=== PATIENT | male | born 1995 | race Caucasian/White ===

== ENCOUNTER 2025-05-30 15:45 | Emergency (ER) | payer BC, SELFPAY ==
[2025-05-30 16:00] VITALS: BP 147/95; PULSE 92; RESP 16; TEMP 36.7; O2SAT 97
--- NOTE | 2025-05-30 16:27 | ED_ITS ---
HPI - General Adult General Chief complaint: Upper Respiratory Infection Stated complaint: Cough Source: patient Mode of arrival: ambulatory Limitations: no limitations History of Present Illness HPI narrative: Pt is a 29 y/o male presenting with c/o cough. Additional sx reported include congestion, fever, rhinorrhea which have resolved. Reports cough x 10 days, has improved since onset. Has been taking OTC meds with improvement. Voices concern due to lingering cough. Denies any new fevers or constitutional sx. No known exposure to COVID/flu/strep. No additional complaints. 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 well-nourished, and in no acute distress. HEAD: Normocephalic, atraumatic. EYES: EOMI. No redness or drainage. Conjunctivae normal. ENT: Mucous membranes pink and moist. Nares clear. No rhinorrhea. TMs normal bilaterally. Throat normal. Uvula midline. NECK: Normal AROM. Supple. No lymphadenopathy. CHEST: No respiratory distress. Clear to auscultation. HEART: Regular rate and rhythm. No murmur appreciated. Normal peripheral pulses. MUSCULOSKELETAL: No bony tenderness. EXTREMITIES: Normal range of motion. No edema. SKIN: Warm, dry, no rash. Capillary refill normal. Normal skin turgor. NEURO: No focal deficits. Alert and oriented x3. Gait steady. PSYCH: Normal affect. No signs of depression or anxiety. Course Course Level of Care: Express Care Visit Vital Signs Vital signs: Vital Signs Temperature 98.1 F 05/30/25 16:00 Pulse Rate 92 05/30/25 16:00 Respiratory Rate 16 05/30/25 16:00 Blood Pressure 147/95 H 05/30/25 16:00 Pulse Oximetry 97 05/30/25 16:00 Temperature 98.1 F 05/30/25 16:00 Pulse Rate 92 05/30/25 16:00 Respiratory Rate 16 05/30/25 16:00 Blood Pressure 147/95 H 05/30/25 16:00 Pulse Oximetry 97 05/30/25 16:00 Medical Decision Making Vital Signs Vital Signs: Vital Signs Temperature 98.1 F 05/30/25 16:00 Pulse Rate 92 05/30/25 16:00 Respiratory Rate 16 05/30/25 16:00 Blood Pressure 147/95 H 05/30/25 16:00 Pulse Oximetry 97 05/30/25 16:00 Temperature 98.1 F 05/30/25 16:00 Pulse Rate 92 05/30/25 16:00 Respiratory Rate 16 05/30/25 16:00 Blood Pressure 147/95 H 05/30/25 16:00 Pulse Oximetry 97 05/30/25 16:00 Discharge Plan Discharge Clinical Impression: Elevated blood pressure reading in office without diagnosis of hypertension Cough Qualifiers: Cough type: acute Qualified Code(s): R05.1 - Acute cough Patient Disposition: Home Condition: Stable Instructions: Antibiotic Form, Acute Cough (ED) Additional Instructions: Go straight to ER should your symptoms become worse or should any new symptoms develop Patient Language: Telugu Prescriptions: New prednisone 20 mg tablet 60 mg PO DAILY Qty: 15 0RF Follow-up/Referrals: Elida Zamudio APRN [Primary Care Provider] - Time of Disposition: 16:29
== END 2025-05-30 16:34 | disposition home or self-care (01) ==
PROVIDERS: Emergency Provider Registered Nurse; PCP Nurse Practitioner Family
DX: R03.0 Elevated blood-pressure reading, without diagnosis of hypertension (principal); R05.1 Acute cough; F17.210 Nicotine dependence, cigarettes, uncomplicated
CPT/HCPCS: 99213; G0463